=== PATIENT | female | born 1965 | race Caucasian/White ===

== ENCOUNTER 2016-04-20 00:17 | Emergency (ER) | payer OTHER ==
--- NOTE | ~2016-04-20 | CT4 ---
[facility] A Service of [facility] & [facility] RADIOLOGY TEXT RESULTS PATIENT: ELSY ORANTES LOCATION: [facility] : 67 UNIT #: [id number] AGE: [address]: Danny Mendosa MD SEX: F ORDER DR: [id number] [facility] [address] [place], [place] [address] [id number] MR#: [id number] Acc #: [id number] NAME: ELSY ORANTES : 1965 SEX: F STUDY DATE/TIME: 04/20/2016 1:24 UNIT: [facility] ROOM: STUDY DESCRIPTION: CT Abd and Pelv Wo Cont Attending Physician: Danny Mendosa Ordering Physician: Ed Doctor [id number] [facility] Primary Care Physician: Porsha Vasquez M.D. MEDICAL IMAGING REPORT This report is preliminary unless electronic signature is present EXAM CT abdomen and pelvis without IV contrast COMPARISON CT chest without IV contrast dated July 04, 2014. INDICATION 51-year-old female with left flank and upper abdominal pain and emesis for 4 days, now worsening. TECHNIQUE Axial CT imaging of the abdomen and pelvis was performed without IV contrast. This CT exam was performed with one or more of the following radiation dose reduction techniques: automatic exposure control, adjustment of mA and/or kV according to patient size, and iterative reconstruction. FINDINGS Lack of IV contrast limits evaluation of adenopathy, vasculature and viscera. No acute fractures or suspicious osseous lesions. Small posterior disc protrusions L4-L5 and L5-S1. No significant findings in the lower chest. Small to moderate-sized hiatal hernia. Unenhanced liver, gallbladder, pancreas, spleen, adrenal glands and kidneys are unremarkable. No hydronephrosis or hydroureter. Urinary bladder is within normal limits. There has been prior hysterectomy. Right-sided pelvic phlebolith is noted. No adnexal masses. Appendix is normal. There is no bowel obstruction. There is fecalization of contents in the terminal ileum suggesting bowel stasis. Normal caliber of the abdominal aorta. No free fluid or pneumoperitoneum. No adenopathy. IMPRESSION [facility] A Service of [facility] & [facility] RADIOLOGY TEXT RESULTS PATIENT: ELSY ORANTES LOCATION: [facility] : 67 UNIT #: [id number] AGE: [address]: Danny Mendosa MD SEX: F ORDER DR: 1. No acute abnormality in the abdomen, pelvis or imaged lower chest. 2. Fecalization of contents in the terminal ileum suggesting bowel stasis. 3. Small to moderate hiatal hernia. 4. Small posterior disc protrusions at multiple levels of the lower lumbar spine. Dictated by... Devendra Dyer M.D. THIS IS AN ELECTRONICALLY VERIFIED REPORT Devendra Dyer M.D. at 04/24/2016 11:07 AM [place] TD: 04/20/2016 08:40 JOB #: [id number] MEDICAL IMAGING REPORT COPY
[~2016-04-20 00:17] MED LIST: ACID CONTROL20 MG PO; ALBUTEROL MININEB NEB; CLARITIN10 M3 DOB; COMBIVENT U/D3 M2 INH; COMBIVENT U/D3 M2 NEB; DOXYCYCLINE HY100 M3 PO; PREDNISONE PO; PREDNISONE10 MG PO
[2016-04-20 00:28] LABS: BASOPHIL# 0.1 X10e3 (0-0.3); BASOPHIL% 0.6 % (0-2.5); DIFF IND NO; EOSINOPHIL# 0.1 X10e3 (0-0.7); EOSINOPHIL% 0.5 % (0.0-7.0); HEMATOCRIT 40.1 % (35.0-45.0); HEMOGLOBIN 13.3 gm/dL (12.0-16.0); LYMPHOCYTE# 1.4 X10e3 (1.0-3.5); MEAN CELL VOLUME 87.6 FL (83-96); MEAN CORPUSCULAR HEMOGLOBIN 29.1 PG (28-34); MEAN CORPUSCULAR HGB CONC 33.2 g/dL (30-36); MEAN PLATELET VOLUME 7.9 FL (6.5-11.5); MONOCYTE# 0.8 X10e3 (0-1.0); MONOCYTE% 6.9 % (3.0-12.0); NEUTROPHIL# 9.5 X10e3 (1.5-7.1); PLATELET COUNT 262 X10e3 (140-420); RED BLOOD COUNT 4.58 X10e (3.90-5.30); RED CELL DISTRIBUTION WIDTH 14.4 % (11.0-15.5); WHITE BLOOD COUNT 11.9 X10e3 (4.0-10.5)
[2016-04-20 00:46] LABS: ALBUMIN SERUM 4.3 g/dL (3.5-5.0); BILIRUBIN, DIRECT 0.1 mg/dL (0.0-0.2); BILIRUBIN,INDIRECT 0.6 mg/dL (0.0-0.9); BILIRUBIN,TOTAL 0.7 mg/dL (0.2-2.0); BUN/CREATININE RATIO 14.16; CALCIUM SERUM 9.2 mg/dL (8.4-10.2); CREATININE SERUM 1.2 mg/dL (0.6-1.4); GLOM FILT RATE Estimated 50.5 mL/min (>60); POTASSIUM 3.8 mmol/L (3.5-5.1); PROTEIN TOTAL SERUM 7.4 g/dL (6.0-8.3)
[2016-05-03] MEDS ORDERED: SINGULAIR PO (07:25)
[2016-05-03] MEDS ORDERED: ZYRTEC10 M1 PO (07:25)
[2016-05-03] MEDS ORDERED: SPIRIVA18 MCG INH (07:25)
[2016-05-03] MEDS ORDERED: PROTONIX PO (07:25)
[2016-05-03] MEDS ORDERED: SYMBICORT INH (12:41)
[2016-05-03] MEDS ORDERED: COMBIVENT U/D3 M2 NEB (15:15)
[2016-05-03] MEDS ORDERED: PROVENTIL0.83 MG/ML INH (15:16)
== END 2016-04-20 04:05 | disposition home or self-care (01) ==
LOC: CED 00:17
PROVIDERS: Emergency Medicine
DX: K80.50 Calculus of bile duct without cholangitis or cholecystitis without obstruction (principal); J45.909 Unspecified asthma, uncomplicated
CPT/HCPCS: 36415; 74176; 80048; 80076; 82150; 83690; 85025; 96361; 96374; 96375; 99284; J2270; J2405

== ENCOUNTER → 2016-05-03 | Day surgery (SDC) | payer OTHER ==
[~2016-05-03] MED LIST changes: +PROTONIX PO; +PROVENTIL0.83 MG/ML INH; +SINGULAIR PO; +SPIRIVA18 MCG INH; +SYMBICORT INH; +ZYRTEC10 M1 PO
--- NOTE | ~2016-05-03 | OR ---
Unit #: [id number] #: [id number] Patient: ELSY ORANTES [id number] [address] [address] [id number] O MR#: [id number] NAME: ELSY ORANTES ROOM: Date of Procedure: 05/03/2016 Admission Date: 05/03/2016 Surgeon: Nav Parra Jr., M.D. : 1965 Attending Physician: Nav Parra Jr., M.D. Primary Care Physician: Porsha Vasquez M.D. OPERATIVE REPORT INDICATION FOR PROCEDURE The patient is a 51-year-old female from [place], who recently presented to the office complaining of intermittent nausea and vomiting with workup revealing evidence of cholecystitis with cholelithiasis. It was felt she is having biliary colic symptoms. She brought in this time at her request for laparoscopic cholecystectomy. The patient understands the procedure including the risks, including that of common duct injury, biliary leak, bleeding, and intra-abdominal organ injury, and consents. PREOPERATIVE DIAGNOSIS Chronic cholecystitis with cholelithiasis and biliary colic. POSTOPERATIVE DIAGNOSES Chronic cholecystitis with cholelithiasis and biliary colic, noting what appeared to be a chronically inflamed gallbladder. ANESTHESIA General with endotracheal intubation and 0.5% Marcaine without epinephrine. PROCEDURE PERFORMED Laparoscopic cholecystectomy. DESCRIPTION OF PROCEDURE The patient was positioned in the supine position. After being anesthetized and intubated, she was prepped and draped in routine fashion for laparoscopic cholecystectomy. A small infraumbilical incision was made approximately 1 cm in length. This was carried down to the fascia. The fascia on the umbilicus was lifted with a towel clip, and a Veress needle was introduced into the abdomen. The abdomen was then inflated with CO2 gas. A 5-mm port was introduced in the abdomen followed by the camera. There was no evidence of any injury related to introduction of the port of the Veress needle. Brief intra-abdominal exploration was carried out. There were no specific abnormalities except for a question of small endometrial implant to the right of the bladder. This was not completely clear that it was an implant though. Rest of the exam except for noting a chronic inflamed gallbladder was unremarkable. Two 5-mm ports were placed laterally and an 11-mm port just to the right of the upper midline. The gallbladder was lifted. Dissection was carried out in the triangle of Calot. Cystic duct was isolated, hemoclipped x4 and divided. Cystic artery was identified, hemoclipped x3, and divided. The cystic duct was divided and clipped approximately 1 cm from its junction with the common duct and the common duct appeared normal. The gallbladder Unit #: [id number] #: [id number] Patient: ELSY ORANTES was then removed from its bed with the hook cautery and there was evidence of some subacute cholecystitis involving the gallbladder bed. After freeing the gallbladder up from its bed, it was placed in EndoCatch bag and brought out through the larger port site once the port site was extended approximately 2 to 3 mm. After the gallbladder was removed, it was sent to pathology and the port was replaced. Subhepatic space checked. There was no evidence of any bleeding from the gallbladder bed. Clips on cystic duct and cystic artery were intact with no evidence of any leak or bleeding. After a small amount of bile was removed with a sponge packed in and taken directly out. The sponge count was correct x3. The CO2 was expressed from the abdomen. The ports were removed. There was no evidence of any bleeding from the port sites. The fascia in the larger port site was approximated with [id number] 0 Vicryl suture. The wounds were irrigated. After adequate hemostasis achieved with Bovie cautery, they were injected with 0.5% Marcaine without epinephrine and irrigated and once hemostasis was again achieved with Bovie cautery with skin edges were approximated with stainless-steel skin clips and skin stapling device. Sterile dressings were applied externally. Estimated blood loss less than 35 mL. The patient received less than 1000 mL crystalloid solution during the procedure. Sponges and instrument counts were correct x3. No drains used. No complications. The patient was taken to the recovery room in stable vital signs and in satisfactory condition. Dictated by... Nav Parra Jr., M.D. JMB/darrick TD: 05/04/2016 03:34 JOB #: [id number] OPERATIVE REPORT X Nav Parra MD PROCEDURE OPERATIVE NOTE
== END | disposition home or self-care (01) ==
LOC: CSUR 06:07
DX: K80.10 Calculus of gallbladder with chronic cholecystitis without obstruction (principal); J45.909 Unspecified asthma, uncomplicated; K21.9 Gastro-esophageal reflux disease without esophagitis; M19.90 Unspecified osteoarthritis, unspecified site; Z85.828 Personal history of other malignant neoplasm of skin; Z88.8 Allergy status to other drugs, medicaments and biological substances; Z79.51 Long term (current) use of inhaled steroids; Z79.899 Other long term (current) drug therapy; Z90.710 Acquired absence of both cervix and uterus; Z98.51 Tubal ligation status; Z98.890 Other specified postprocedural states
CPT/HCPCS: 88304; J0131; J0690; J1100; J1650; J1885; J2405; J2710; J3010